=== PATIENT | female | born 1950 | race American Indian/Alaskan Native ===

== ENCOUNTER 2017-04-23 09:18 | Day surgery (SDC) | payer MEDICAID ==
[2017-04-23] MEDS ORDERED: Lidocaine Hydrochloride 5 ML INJ ONE (10:13)
[2017-04-23] MEDS ORDERED: Etomidate 20 mg/10ml Inj IV ONE (10:13)
[2017-04-23] MEDS ORDERED: Propofol 10 mg/ml Inj (20 ML) ONE (10:18)
[2017-04-23 10:50] VITALS: TEMP 96.9; O2SAT 100
[2017-04-23 11:51] VITALS: BP 171/82; PULSE 82; RESP 13
== END 2017-04-23 11:48 | disposition home or self-care (01) ==
LOC: C.ENDO 09:18
PROVIDERS: ATTEND Internal Medicine
DX: K21.0 Gastro-esophageal reflux disease with esophagitis (principal); K44.9 Diaphragmatic hernia without obstruction or gangrene; I10 Essential (primary) hypertension; I69.354 Hemiplegia and hemiparesis following cerebral infarction affecting left non-dominant side; E10.40 Type 1 diabetes mellitus with diabetic neuropathy, unspecified
CPT/HCPCS: 43239; 82948; 88305; 88312; 88313; 88342; J2704

== ENCOUNTER 2018-08-08 10:21 | Outpatient (CLI) | payer OTHER | END 2018-08-08 10:22 | disposition home or self-care (01) | LOC: C.PAT 10:21 | DX: Z80.0 Family history of malignant neoplasm of digestive organs (principal) ==

== ENCOUNTER 2018-08-14 09:33 | Day surgery (SDC) | payer MEDICARE ==
[2018-08-08 10:33] VITALS: BMI 28.1
[2018-08-14] MEDS ORDERED: Lactated Ringer's 500 ML IV ONE (11:47)
[2018-08-14] MEDS ORDERED: Propofol 10 mg/ml Inj (20 ML) ONE (11:52)
[2018-08-14] MEDS ORDERED: Lidocaine Hydrochloride 5 ML INJ ONE (12:13)
[2018-08-14 12:57] VITALS: TEMP 97.9
[2018-08-14 13:21] VITALS: O2SAT 99
[2018-08-14 14:23] VITALS: BP 156/61; PULSE 66; RESP 19
== END 2018-08-14 13:58 | disposition home or self-care (01) ==
LOC: C.ENDO 09:33
PROVIDERS: ATTEND Internal Medicine Gastroenterology
DX: D12.3 Benign neoplasm of transverse colon (principal); D12.0 Benign neoplasm of cecum; K63.5 Polyp of colon; Z80.0 Family history of malignant neoplasm of digestive organs; K64.1 Second degree hemorrhoids; E11.9 Type 2 diabetes mellitus without complications; I10 Essential (primary) hypertension
CPT/HCPCS: 45380; 45385; 82948; 88305; J2704; J7120